=== PATIENT | female | born 1995 | race Two or more races ===

== ENCOUNTER 2018-11-21 19:04 | Emergency (ER) | payer SELFPAY ==
--- NOTE | 2018-11-21 19:49 | ER Document Report ---
ED Medical Screen (RME) - General Chief Complaint: Suicidal Ideation Stated Complaint: PSYCH EVAL Time Seen by Provider: 11/21/18 19:48 Mode of Arrival: Ambulatory Information source: Patient Notes: Patient presents with suicidal ideation. Patient states that she has had increased stress at home recently. Patient states that she did attempt to cut her wrist 2 weeks ago. Patient is currently being treated for depression with Wellbutrin and Zoloft. Patient states her doctor advised her to come here for further evaluation. I have greeted and performed a rapid initial assessment of this patient. A comprehensive ED assessment and evaluation of the patient, analysis of test results and completion of the medical decision making process will be conducted by additional ED providers. - Related Data Allergies/Adverse Reactions: latex Allergy (Verified 11/21/18 19:06) Physical Exam - Vital signs Vitals: Temp Pulse Resp BP Pulse Ox 98.4 F 82 20 116/76 100 11/21/18 19:09 11/21/18 19:09 11/21/18 19:09 11/21/18 19:09 11/21/18 19:09 - Psychological Associated symptoms: Depressed, Flat affect Course - Vital Signs Vital signs: Temp Pulse Resp BP Pulse Ox 98.4 F 82 20 116/76 100 11/21/18 19:09 11/21/18 19:09 11/21/18 19:09 11/21/18 19:09 11/21/18 19:09
[2018-11-21 20:19] LABS: ABSOLUTE BASOPHILS # (AUTO) 0.1 10^3/uL (0.0-0.2); ABSOLUTE EOSINOPHILS # (AUTO) 0.1 10^3/uL (0.0-0.6); ABSOLUTE LYMPHOCYTES (AUTO) 2.9 10^3/uL (0.5-4.7); ABSOLUTE MONOCYTES (AUTO) 0.5 10^3/uL (0.1-1.4); BASOPHILS % (AUTO) 0.6 % (0-2); EOSINOPHILS % (AUTO) 1.2 % (0-6); HEMATOCRIT 45.7 % (36.0-47.0); HEMOGLOBIN 15.4 g/dL (12.0-15.5); LYMPHOCYTES % (AUTO) 33.7 % (13-45); MEAN CORPUSCULAR HEMOGLOBIN 29.8 pg (27.0-33.4); MEAN CORPUSCULAR HGB CONC 33.6 g/dL (32.0-36.0); MEAN CORPUSCULAR VOLUME 89 fl (80-97); MONOCYTES % (AUTO) 5.5 % (3-13); PLATELET COUNT 252 10^3/uL (150-450); RED BLOOD COUNT 5.16 10^6/uL (3.72-5.28); TOTAL CELLS COUNTED % (AUTO) 100 %; WHITE BLOOD COUNT 8.5 10^3/uL (4.0-10.5)
[2018-11-21 20:29] LABS: APPEARANCE,URINE SLIGHTLY-CLOUDY; BILIRUBIN,URINE NEGATIVE (NEGATIVE); COLOR,URINE YELLOW; GLUCOSE, URINE NEGATIVE (NEGATIVE); KETONES,URINE TRACE mg/dL (NEGATIVE); LEUKOCYTE ESTERASE,URINE SMALL (NEGATIVE); NITRITE,URINE NEGATIVE (NEGATIVE); PROTEIN,URINE NEGATIVE (NEGATIVE); URINE SPECIFIC GRAVITY 1.023; UROBILINOGEN,URINE NEGATIVE mg/dL (<2.0)
[2018-11-21 20:39] LABS: ALANINE AMINOTRANSFERASE 21 U/L (9-52); ALBUMIN 4.9 g/dL (3.5-5.0); ALKALINE PHOSPHATASE 68 U/L (38-126); ANION GAP 11 (5-19); ASPARTATE AMINO TRANSFERASE 31 U/L (14-36); BILIRUBIN,DIRECT 0.2 mg/dL (0.0-0.4); BILIRUBIN,TOTAL 0.8 mg/dL (0.2-1.3); BLOOD UREA NITROGEN 12 mg/dL (7-20); CALCIUM 9.9 mg/dL (8.4-10.2); CARBON DIOXIDE 27 mmol/L (22-30); CHLORIDE 101 mmol/L (98-107); GLUCOSE 83 mg/dL (75-110); POTASSIUM 4.2 mmol/L (3.6-5.0); SODIUM 139.1 mmol/L (137-145); TOTAL PROTEIN 8.2 g/dL (6.3-8.2)
[2018-11-21 20:41] LABS: ACETAMINOPHEN < 10 ug/mL (10-30); ALCOHOL < 10 mg/dL (NONE DETECTED); SALICYLATE < 1.0 mg/dL (2.0-20.0)
[2018-11-21 20:42] LABS: URINE AMPHETAMINES SCREEN NEGATIVE; URINE BARBITURATES SCREEN NEGATIVE; URINE BENZODIAZEPINES SCREEN NEGATIVE; URINE COCAINE SCREEN NEGATIVE; URINE MARIJUANA (THC) SCREEN NEGATIVE; URINE METHADONE SCREEN NEGATIVE; URINE PHENCYCLIDINE SCREEN NEGATIVE
--- NOTE | 2018-11-21 22:35 | ER Document Report ---
ED General - General Chief Complaint: Suicidal Ideation Stated Complaint: PSYCH EVAL Time Seen by Provider: 11/21/18 19:48 Mode of Arrival: Ambulatory - [facility] Patient complains to provider of: Suicidal ideation Notes: Young woman presents with worsening depression. Has had suicidal ideation. Has no support system in the community. Has not been able to tolerate her antidepressant medications. Has not been seeing her psychologist as well. Was cutting several weeks ago. No signs or body at this time. Patient does not have an organized plan. - Related Data Allergies/Adverse Reactions: kiwi Allergy (Verified 11/21/18 22:48) latex Allergy (Verified 11/21/18 19:06) carolyn Allergy (Verified 11/21/18 22:48) Past Medical History - General Information source: Patient - Social History Smoking Status: Unknown if Ever Smoked Family History: None Review of Systems - Review of Systems Notes: REVIEW OF SYSTEMS: CONSTITUTIONAL: -fevers, -chills EENT: -eye pain, -difficulty swallowing, -nasal congestion CARDIOVASCULAR: -chest pain, -syncope. RESPIRATORY: -cough, -SOB GASTROINTESTINAL: -abdominal pain, -nausea, -vomiting, -diarrhea GENITOURINARY: -dysuria, -hematuria MUSCULOSKELETAL: -back pain, -neck pain SKIN: -rash or skin lesions. HEMATOLOGIC: -easy bruising or bleeding. LYMPHATIC: -swollen, enlarged glands. NEUROLOGICAL: -altered mental status or loss of consciousness, -headache, - neurologic symptoms PSYCHIATRIC: positive depression and anxiety ALL OTHER SYSTEMS REVIEWED AND NEGATIVE. Physical Exam - Vital signs Vitals: Temp Pulse Resp BP Pulse Ox 98.4 F 82 20 116/76 100 11/21/18 19:09 11/21/18 19:09 11/21/18 19:09 11/21/18 19:09 11/21/18 19:09 - Notes Notes: PHYSICAL EXAMINATION: GENERAL: Well-appearing, well-nourished and in no acute distress. HEAD: Atraumatic, normocephalic. EYES: Pupils equal round and reactive to light, extraocular movements intact, sclera anicteric, conjunctiva are normal. ENT: nares patent, oropharynx clear without exudates. Moist mucous membranes. NECK: Normal range of motion, supple without lymphadenopathy LUNGS: Breath sounds clear to auscultation bilaterally and equal. No wheezes rales or rhonchi. HEART: Regular rate and rhythm without murmurs ABDOMEN: Soft, nontender, normoactive bowel sounds. No guarding, no rebound. No masses appreciated. EXTREMITIES: Normal range of motion, no pitting or edema. No cyanosis. NEUROLOGICAL: Cranial nerves grossly intact. Normal speech, normal gait. Normal sensory and motor exams. PSYCH: Pressed mood, flattened affect SKIN: Warm, Dry, normal turgor, no rashes or lesions noted. Course - Re-evaluation Re-evalutation: 11/21/18 23:11 Patient presents with continued suicidal ideation. They are worse when she is alone at home. Patient's spouse is out all day she is new to the community has very little support. Patient's extensive lab work-up shows no organic cause of the symptoms. Patient will be admitted to our psychiatric unit. Will be seen by psychology tomorrow morning - Vital Signs Vital signs: Temp Pulse Resp BP Pulse Ox 98.4 F 82 20 116/76 100 11/21/18 19:09 11/21/18 19:09 11/21/18 19:09 11/21/18 19:09 11/21/18 19:09 - Laboratory Result Diagrams: 11/21/18 19:56 11/21/18 19:56 Laboratory results interpreted by me: 11/21/18 11/21/18 19:56 19:56 Urine Ketones TRACE H Ur Leukocyte Esterase SMALL H Salicylates < 1.0 L Acetaminophen < 10 L Discharge - Discharge Clinical Impression: Suicidal ideation Disposition: PSYCH HOSP/UNIT
[2018-11-22 06:42] VITALS: BP 93/55
--- NOTE | 2018-11-22 08:32 | EKG REPORT ---
SEVERITY:- NORMAL ECG - SINUS RHYTHM : Confirmed by: Randy Sanabria MD 22-Nov-2018 08:32:08
--- NOTE | 2018-11-22 10:27 | ER Document Report ---
Doctor's Note Notes: 11/22/18 10:26 I have evaluated this pt. this am and she has no c/o. Her physical exam is normal and she feels all of her needs are being met. She is awaiting disposition per mental health.
[2018-11-22] MEDS ORDERED: BUPROPION HCL 75 MG TABLET PO ONE (12:41)
[2018-11-22] MEDS ORDERED: BUSPIRONE HCL 10 MG TABLET PO ONE (12:42)
[2018-11-22] MEDS ORDERED: OLANZAPINE 2.5 MG TABLET PO ONE (12:42)
[2018-11-22] MEDS ORDERED: BUPROPION HCL 100 MG TABLET PO ONE (14:00)
== END 2018-11-22 15:30 | disposition home or self-care (01) ==
LOC: ER 19:04
DX: R45.851 Suicidal ideations (principal); F32.9 Major depressive disorder, single episode, unspecified; Z79.899 Other long term (current) drug therapy
CPT/HCPCS: 93005; 99285; 36415; 80307 ×4; 84703; 85025; 80053; 81001; 93010; J3490